=== PATIENT | male | born 1995 | race Caucasian/White ===

== ENCOUNTER 2023-12-01 09:52 | Emergency (ER) | payer OTHER, SELFPAY ==
--- NOTE | 2023-12-01 09:54 | ED.EYEPROB ---
HPI - Eye Problem General Chief complaint: Eye Problems Stated complaint: Itchy LT Eye Time Seen by Provider: 12/01/23 09:54 Source: patient Mode of arrival: ambulatory Limitations: no limitations History of Present Illness HPI Narrative: Osiel is a 28-year-old male patient presenting to the clinic today with complaints of itchy left eye x1 day. He reports his left eye began to swell and draining green/white discharge yesterday. Woke up this morning with some discharge/crusting to the right eye as well. No fever or chills. Had URI symptoms x1 week but those symptoms have improved. No known exposure to anyone with conjunctivitis. States he thought he may have gotten some thin in his left eye yesterday as it was painful/irritated. He did do a irrigation to the left eye. Related Data Allergies Allergy/AdvReac Type Severity Reaction Status Date / Time No Known Allergies Allergy Verified 12/01/23 10:24 Review of Systems Review of Systems: Pertinent positives per HPI. Patient denies any fever, chills, rash, headache, visual changes, dizziness, cough, runny nose, sore throat, shortness of breath, chest pain, palpitations, nausea, vomiting, diarrhea, constipation, abdominal pain, or any urinary issues. PMFSH Comments At the time of my signature, I reviewed and agree with the nursing past medical, surgical, social, and family history. There is no relevant family history pertinent to the patient complaint. Exam Narrative: General: Well-developed, well nourished, in no apparent distress Head: Normocephalic, atraumatic Eyes: Pupils equally round and reactive to light bilaterally, EOM intact, right sclera and conjunctive clear, left sclera and conjunctiva injected, yellow crusting discharge to bilateral eyes, right lids normal, left lids swollen Ears: TMs intact and clear, ear canals clear, no drainage, grossly hearing normal. Nose: Nares patent, no discharge, no inflammation, no sinus tenderness. Mouth: Oropharynx without lesions or masses, good dentition, MMM. Neck: Supple, trachea midline, no enlargement of anterior or posterior cervical nodes, no thyroid masses or goiter palpable. Cardio: Regular rate and rhythm, s1 and s2 normal, no murmur appreciated. Resp: Clear to auscultation bilaterally anteriorly and posteriorly, no rhonchi, rales, wheezing or rubs Course Course Emergency Course: Portions of this record may have been created with voice recognition software. Level of Care: Express Care Visit Vital Signs Vital signs: Vital Signs Temperature 36.2 C L 12/01/23 10:03 Pulse Rate 75 12/01/23 10:03 Respiratory Rate 17 12/01/23 10:03 Blood Pressure 125/77 12/01/23 10:03 Pulse Oximetry 98 12/01/23 10:03 Oxygen Delivery Room Air 12/01/23 10:03 Temperature 36.2 C L 12/01/23 10:03 Pulse Rate 75 12/01/23 10:03 Respiratory Rate 17 12/01/23 10:03 Blood Pressure 125/77 12/01/23 10:03 Pulse Oximetry 98 12/01/23 10:03 Oxygen Delivery Room Air 12/01/23 10:03 Vital signs reviewed Procedures Other Procedure Procedure 1: Other Procedure: 2 drops of Tetracaine topical anesthetic was instilled with good anesthesia. Fluorescein stain of the left eye was performed without uptake of dye. No epithelial defect was noted. NO FB, ulcer or dendritic lesions. Upper lid was everted and no FB or lesions were noted. NO Dalia sign. Normal saline irrigation eye solution was performed and the patient tolerated the procedure well, no adverse reaction or complications. Visual acuities 20/20 in both eyes MDM - Eye Problem MDM Narrative Medical decision making narrative: At the time of visit patient is resting comfortably on the exam table. Patient appears to be nontoxic. Procedures: Wood's lamp exam was performed to the left eye without sign of corneal abrasion or trauma. No obvious foreign body visible Plan: I suspect patient has bacterial conjunctivitis. Prescription
[2023-12-01 10:03] VITALS: BP 125/77; PULSE 75; RESP 17; TEMP 36.2; O2SAT 98
[2023-12-01] MEDS: FLUORESCEIN SOD 1 MG/STRIP LEFT EYE (10:20)
[2023-12-01] MEDS: DACRIOSE EYE IRRIGATION 118 ML BOTTLE LEFT EYE (10:20)
[2023-12-01] MEDS: TETRACAINE HCL 0.5% OPHTH SOLN 4 ML BTL LEFT EYE (11:14)
== END 2023-12-01 10:25 | disposition home or self-care (01) ==
PROVIDERS: Emergency Provider Nurse Practitioner Family
DX: H10.9 Unspecified conjunctivitis (principal)
CPT/HCPCS: 99203; A9270; G0463